=== PATIENT | male | born 1975 | race Hispanic/Latino ===

== ENCOUNTER 2020-03-02 02:42 | Emergency (ER) | payer SELFPAY ==
[2020-03-02 02:58] VITALS: BP 172/95
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
[2020-03-02 03:41] LABS: Basophils # (Auto) 0.3 K/mm3 (0.0-0.1); Basophils % (Auto) 2.4 % (0.0-1.8); Eosinophils # (Auto) 0.1 K/mm3 (0.0-0.4); Eosinophils % (Auto) 0.5 % (0.0-4.3); Hematocrit 41.8 % (35.5-45.6); Hemoglobin 14.2 gm/dl (11.8-15.2); Lymphocytes # (Auto) 2.6 K/mm3 (1.2-5.4); Lymphocytes % (Auto) 21.2 % (13.4-35.0); Mean Corpuscular HGB Conc 34 % (32-34); Mean Corpuscular Volume 83 fl (84-94); Monocytes # (Auto) 0.9 K/mm3 (0.0-0.8); Monocytes % (Auto) 7.1 % (0.0-7.3); Platelet Count 306 K/mm3 (140-440); Red Blood Count 5.03 M/mm3 (3.65-5.03)
[2020-03-02 04:12] LABS: Alanine Aminotransferase 48 units/L (7-56); Albumin 4.8 g/dL (3.9-5); BUN/Creatinine Ratio 16; Blood Urea Nitrogen 19 mg/dL (9-20); Calcium 9.7 mg/dL (8.4-10.2); Hemolysis Index 35
[2020-03-02 06:13] LABS: Amphetamine Screen,Urine PRESUMPTIVE POSITIVE; Benzodiazepines Screen,Urine PRESUMPTIVE NEGATIVE; Cannabinoid Screen,Urine PRESUMPTIVE NEGATIVE; Cocaine Screen,Urine PRESUMPTIVE NEGATIVE; Methadone Screen,Urine PRESUMPTIVE NEGATIVE; Opiate Screen,Urine PRESUMPTIVE NEGATIVE
[2020-03-02 06:15] LABS: Bacteria,Urine 1+ /HPF (Negative); Bilirubin,Urine NEG (Negative); Blood,Urine NEG (Negative); Color,Urine Amber (Yellow); Hyaline Casts,Urine 14 /LPF; Mucus,Urine 3+ /HPF
[2020-03-02 06:16] LABS: Protein,Urine >500 mg/dL (Negative)
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
[2020-03-02] MEDS ORDERED: ZIPRASIDONE MESYLATE 20 MG VIAL IM PRN (09:25)
[2020-03-02] MEDS ORDERED: risperiDONE 0.25 MG TAB PO SCH (10:00)
[2020-03-02] MEDS ORDERED: DIVALPROEX DR 125 MG TAB PO SCH (10:00)
[2020-03-02] MEDS ORDERED: traZODone 50 MG TAB PO SCH (22:00)
== END 2020-03-02 15:30 ==
LOC: ED 02:42
DX: F23 Brief psychotic disorder (principal); Z53.21 Procedure and treatment not carried out due to patient leaving prior to being seen by health care provider
CPT/HCPCS: 80053; 80307; 80320; 81001; 85025; 87086; G0480

== ENCOUNTER 2020-03-02 23:01 | Emergency (ER) | payer SELFPAY ==
--- NOTE | 2020-03-02 23:34 | Event Note ---
ED Screening Note Date of service: 03/02/20 Time: 23:33 ED Screening Note: 44-year-old male presents to the emergency room complaining of body pains and cold symptoms. Patient was seen here last night and discharged this morning with mental health concern. Patient reports he has diarrhea. Patient denies any SI or HI. Patient is here with all his belongings and his dog. This initial assessment/diagnostic orders/clinical plan/treatment(s) is/are subject to change based on patients health status, clinical progression and re- assessment by fellow clinical providers in the ED. Further treatment and workup at subsequent clinical providers discretion. Patient/guardian urged not to elope from the ED as their condition may be serious if not clinically assessed and managed. Initial orders include:
--- NOTE | 2020-03-03 01:22 | XRay Report ---
CHEST 1 VIEW 0000 INDICATION / CLINICAL INFORMATION: Productive cough, sore throat, back pain, dizziness COMPARISON: None available. FINDINGS: SUPPORT DEVICES: None HEART / MEDIASTINUM: No significant abnormality. LUNGS / PLEURA: No obvious pulmonary infiltrates of significance are seen. Probable minimal scarring is seen in the left midlung. Mild atelectasis versus scarring is seen in the left base. No pneumothor ax. ADDITIONAL FINDINGS: No significant additional findings. IMPRESSION: No significant acute abnormality Signer Name: J Luis Marshall MD Signed: 03/03/2020 1:17 AM Workstation Name: [id number]
[2020-03-03] MEDS ORDERED: ONDANSETRON 4 MG/2 ML INJ IV ONE (01:35)
[2020-03-03] MEDS ORDERED: SODIUM CHLORIDE 0.9% 1000 ML 1,000 ML IV ONE (01:35)
[2020-03-03] MEDS ORDERED: methylPREDNISolone Sod Succinate 125 MG/2 ML INJ IV ONE (01:36)
--- NOTE | 2020-03-03 01:40 | Emergency Department Report ---
ED Abdominal Pain HPI - General Chief Complaint: Nausea/Vomiting/Diarrhea Stated Complaint: BODY PAIN/COLD SX Time Seen by Provider: 03/03/20 01:28 Source: patient Mode of arrival: Ambulatory Limitations: No Limitations - History of Present Illness Initial Comments: Patient is 44 years old male with history of Crohn's disease. Patient presented to the ER complaining of lower abdominal pain, nausea, vomiting and diarrhea for the last 2 to 3 days. Patient denied any fever or chills. He also stated that he has been having cough and some congestion too. Patient denied any chest pain or shortness of breath. MD Complaint: abdominal pain -: Last night Location: diffuse Radiation: none Migration to: no migration Severity scale (0 -10): 4 Quality: cramping - Related Data Home Medications Medication Instructions Recorded Confirmed Last Taken Atripla Tablet 1 tab PO QDAY 08/04/15 08/04/15 Unknown Duloxetine HCl [Cymbalta] 60 mg PO QDAY 08/04/15 08/04/15 Unknown busPIRone [Buspar] 30 mg PO BID 08/04/15 08/04/15 Unknown Allergies Allergy/AdvReac Type Severity Reaction Status Date / Time clarithromycin [From Biaxin] Allergy Hives Verified 08/04/15 09:11 ED Review of Systems ROS: Stated complaint: BODY PAIN/COLD SX Other details as noted in HPI Comment: All other systems reviewed and negative Constitutional: denies: chills, diaphoresis Respiratory: denies: cough, shortness of breath, SOB with exertion Cardiovascular: denies: chest pain, palpitations Gastrointestinal: abdominal pain, nausea, vomiting, diarrhea Musculoskeletal: denies: back pain Neurological: denies: headache, weakness, numbness, paresthesias, confusion ED Past Medical Hx - Past Medical History Previous Medical History?: Yes Hx Congestive Heart Failure: Yes Hx Psychiatric Treatment: Yes (Depression, Anxiety, PTSD) Hx HIV: Yes Additional medical history: crohn's - Surgical History Past Surgical History?: Yes Additional Surgical History: cholera implant. tonsil - Social History Smoking Status: Current Every Day Smoker Substance Use Type: None - Medications Home Medications: Home Medications Medication Instructions Recorded Confirmed Last Taken Type Atripla Tablet 1 tab PO QDAY 08/04/15 08/04/15 Unknown History Duloxetine HCl [Cymbalta] 60 mg PO QDAY 08/04/15 08/04/15 Unknown History busPIRone [Buspar] 30 mg PO BID 08/04/15 08/04/15 Unknown History ED Physical Exam - General Limitations: No Limitations General appearance: alert, in no apparent distress - Head Head exam: Present: atraumatic, normocephalic - ENT ENT exam: Present: mucous membranes dry - Neck Neck exam: Present: normal inspection, full ROM. Absent: tenderness, m eningismus - Respiratory Respiratory exam: Present: normal lung sounds bilaterally - Cardiovascular Cardiovascular Exam: Present: regular rate, normal rhythm, normal heart sounds - GI/Abdominal GI/Abdominal exam: Present: soft, normal bowel sounds. Absent: distended, tenderness, guarding, rebound, rigid, organomegaly, mass, bruit, pulsatile mass, hernia - Extremities Exam Extremities exam: Present: normal inspection, full ROM, normal capillary refill. Absent: tenderness, pedal edema, joint swelling, calf tenderness - Back Exam Back exam: Present: normal inspection, full ROM. Absent: CVA tenderness (R), CVA tenderness (L) - Neurological Exam Neurological exam: Present: alert, oriented X3, CN II-XII intact - Psychiatric Psychiatric exam: Present: normal mood - Skin Skin exam: Present: warm, dry, intact ED Course Vital Signs 03/02/20 23:28 Temperature 98.1 F Pulse Rate 108 H Respiratory 17 Rate Blood Pressure 134/73 O2 Sat by Pulse 95 Oximetry ED Medical Decision Making - Lab Data Result diagrams: 03/03/20 01:44 03/03/20 01:44 - Medical Decision Making Patient is 44 years old male with history of Crohn's disease. Patient presented to the ER complaining of lower abdominal pain, nausea, vomiting and diarrhea for the last 2 to 3 days. Patient denied any fever or chills. He also stated that he has been having cough and some congestion too. Patient denied any chest pain or shortness of breath. Patient received normal saline, Solu-Medrol and Zofran. Patient stated that he is feeling much better. I believe patient symptom is most likely a Crohn's exacerbation. Patient given prescription for prednisone and Zofran. Patient advised to follow-up with his primary doctor in the next 2 to 3 days and to return to the ER if he develop any new symptoms. Critical care attestation.: If time is entered above; I have spent that time in minutes in the direct care of this critically ill patient, excluding procedure time. ED Disposition Clinical Impression: Abdominal pain, Nausea vomiting and diarrhea, Exacerbation of Crohn's disease Disposition: TO HOME OR SELFCARE Is pt being admited?: No Condition: Stable Instructions: Nausea and Vomiting, Adult, [id number], Abdominal Pain, Adult, [id number] Referrals: IVAN HOGUE MD [Primary Care Provider] - 3-5 Days
[2020-03-03 02:04] LABS: Basophils # (Auto) 0.1 K/mm3 (0.0-0.1); Basophils % (Auto) 1.5 % (0.0-1.8); Eosinophils # (Auto) 0.2 K/mm3 (0.0-0.4); Eosinophils % (Auto) 1.5 % (0.0-4.3); Hematocrit 39.4 % (35.5-45.6); Hemoglobin 13.2 gm/dl (11.8-15.2); Lymphocytes # (Auto) 2.9 K/mm3 (1.2-5.4); Lymphocytes % (Auto) 29.4 % (13.4-35.0); Mean Corpuscular HGB Conc 33 % (32-34); Mean Corpuscular Volume 84 fl (84-94); Monocytes # (Auto) 0.9 K/mm3 (0.0-0.8); Monocytes % (Auto) 8.6 % (0.0-7.3); Platelet Count 254 K/mm3 (140-440); Red Blood Count 4.67 M/mm3 (3.65-5.03); Red Cell Distribution Width 15.6 % (13.2-15.2)
[2020-03-03 02:25] LABS: Alanine Aminotransferase 43 units/L (7-56); Albumin 4.4 g/dL (3.9-5); BUN/Creatinine Ratio 20; Blood Urea Nitrogen 18 mg/dL (9-20); Hemolysis Index 35
[2020-03-03 02:43] LABS: Bilirubin,Direct < 0.2 mg/dL (0-0.2)
[2020-03-03 04:02] VITALS: BP 117/65
== END 2020-03-03 04:00 | disposition home or self-care (01) ==
LOC: ED 23:01
DX: K50.90 Crohn's disease, unspecified, without complications (principal); R19.7 Diarrhea, unspecified; R10.30 Lower abdominal pain, unspecified; R11.2 Nausea with vomiting, unspecified; I50.9 Heart failure, unspecified; F32.9 Major depressive disorder, single episode, unspecified; F41.9 Anxiety disorder, unspecified; F17.200 Nicotine dependence, unspecified, uncomplicated; Z21 Asymptomatic human immunodeficiency virus [HIV] infection status; Z98.890 Other specified postprocedural states; Z88.8 Allergy status to other drugs, medicaments and biological substances; Z79.899 Other long term (current) drug therapy
CPT/HCPCS: 36415; 71045; 80048; 80076; 85025; 96361; 96374; 96375; 99284; J2405; J2930; J7030

== ENCOUNTER 2020-09-14 15:14 | Emergency (ER) | payer SELFPAY | END 2020-09-14 16:06 | disposition left against medical advice (07) | LOC: ED 15:14 | DX: Z00.8 Encounter for other general examination (principal); Z53.21 Procedure and treatment not carried out due to patient leaving prior to being seen by health care provider ==

== ENCOUNTER 2020-10-29 08:21 | Outpatient (CLI) | payer OTHER ==
--- NOTE | 2020-10-29 09:09 | XRay Report ---
CHEST 2 VIEWS INDICATION / CLINICAL INFORMATION: HEART FAILURE. COMPARISON: 03/03/2020 FINDINGS: SUPPORT DEVICES: None. HEART / MEDIASTINUM: No significant abnormality. LUNGS / PLEURA: No significant pulmonary or pleural abnormality. No pneumothorax. ADDITIONAL FINDINGS: No significant additional findings. IMPRESSION: 1. No acute findings. Signer Name: Matt Winston DO Signed: 10/29/2020 9:05 AM Workstation Name: [id number]
== END 2020-10-29 08:22 | disposition home or self-care (01) ==
LOC: XRAY 08:21
PROVIDERS: ATTEND Internal Medicine
DX: I50.9 Heart failure, unspecified (principal)
CPT/HCPCS: 71046